=== PATIENT | male | born 1945 | race Caucasian/White ===

== ENCOUNTER 2018-06-27 04:09 | Inpatient (IN) ==
[2018-06-25 10:58] LABS: HEMATOCRIT 44.7 % (42.0-52.0); HEMOGLOBIN 15.3 g/dL (14.0-18.0); MCH 32.6 PG (27-31); MCHC 34.2 g/dL (33-37); MCV 95.3 FL (81-99); MPV 12.1 FL (7.4-10.4); RBC 4.69 XMIL (4.7-6.1); RDW 12.9 % (11.5-14.5); WBC 6.92 X1000 (4.8-10.8)
[2018-06-27] MEDS ORDERED: DIPRIVAN 1% ONE ×2 (07:56→10:28)
[2018-06-27] MEDS ORDERED: QUELICIN (DOSE) ONE ×2 (07:56→10:52)
[2018-06-27] MEDS ORDERED: XYLOCAINE-MPF 2% ONE ×2 (07:56→10:52)
[2018-06-27] MEDS ORDERED: ENTEREG ONE (08:19)
[2018-06-27] MEDS ORDERED: LR 1,000 ML ONE ×2 (08:19→10:58)
[2018-06-27] MEDS ORDERED: INVANZ 1 GM/NS 1 GM/50 ML IVPB ONE (08:20)
[2018-06-27] MEDS ORDERED: FENTANYL ONE ×2 (10:29→10:31)
[2018-06-27] MEDS ORDERED: NORCURON ONE (10:52)
[2018-06-27] MEDS ORDERED: SODIUM CHLORIDE 0.9% 10 ML ONE (10:52)
[2018-06-27] MEDS ORDERED: SENSORCAINE-MPF 0.5%/EPI 1:200,000 ONE (10:58)
[2018-06-27] MEDS ORDERED: NAROPIN 0.5% ONE (11:06)
[2018-06-27] MEDS ORDERED: EXPAREL 1.3% ONE (11:07)
[2018-06-27] MEDS: INVANZ 1 GM/NS 0 GM/0 ML IVPB ONE ×2 (11:12→20:34)
[2018-06-27] MEDS ORDERED: ATROPINE ONE (11:57)
[2018-06-27] MEDS ORDERED: DECADRON ONE (12:15)
[2018-06-27] MEDS ORDERED: ZOFRAN ONE (12:15)
[2018-06-27] MEDS ORDERED: ROBINUL ONE (12:32)
[2018-06-27 12:42] LABS: URINE SOURCE CATH
[2018-06-27 12:47] LABS: BILIRUBIN URINE NEGATIVE (NEGATIVE); BLOOD URINE TRACE (NEGATIVE); COLOR YELLOW; GLUCOSE URINE NEGATIVE (NEGATIVE); KETONE URINE NEGATIVE (NEGATIVE); LEUKOCYTES URINE NEGATIVE (NEGATIVE); NITRITE URINE NEGATIVE (NEGATIVE); PROTEIN URINE TRACE mg/dL (NEGATIVE); SP GRAVITY URINE 1.003; TURBIDITY URINE CLEAR (CLEAR); UROBILINOGEN URINE NORMAL (NORMAL)
[2018-06-27 12:49] LABS: UR EPITHELIAL CELLS <10 /HPF (<10); URINE BACTERIA NEGATIVE /HPF; URINE WBC <10 /HPF (<10)
[2018-06-27] MEDS ORDERED: NEOSTIGMINE ONE (13:37)
--- NOTE | 2018-06-27 14:47 | OPERATIVE NOTE ---
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 PROCEDURE PERFORMED: Laparoscopic right colectomy. TACK DRILLER: Dr. Dee was present for creation of anastomosis and closure of the abdomen. He facilitated exposure and identification of anatomy. ANESTHESIA: General and a TAP block. INDICATIONS: A 72-year-old gentleman who had a transverse colon mass that was noted at the time of colonoscopy. Biopsy showed invasive carcinoma. He was also incidentally found to have a bladder tumor that was treated and is consistent with a primary bladder malignancy. This was done prior to his colectomy. OPERATIVE FINDINGS: There was a tattooed lesion at the hepatic flexure. No evidence of metastatic disease. OPERATIVE NOTE: Risks, benefits, and alternatives were discussed with the patient, and he consented to the procedure. He was seen preoperatively. The surgical site was confirmed and marked. He was taken to the operating room and placed in supine position. General anesthesia was induced without complication. All bony prominences were padded. He was then placed in lithotomy position, ensuring no pressure points at this point, and a TAP block was performed by our Anesthesia colleagues. For details, please see their record. After this, his abdomen was prepped with chlorhexidine solution and draped in the usual fashion. After a time-out, we made a supraumbilical incision, carried this down the fascia, and incised the fascia and entered in an open controlled fashion. A 12 mm Patricia trocar was placed. We then placed a 5 mm trocar in the suprapubic location and a left lower quadrant 12 mm trocar. We identified the tattoo lesion, placed the patient in steep [id number] and Trendelenburg position, identified the cecum and terminal ileum, and elevated this, identifying the ileocolic pedicle. We divided this highly after dissecting it out circumferentially with the LigaSure device with a vascular load stapler. We were able to identify the duodenum and protect this, dissecting it down. We continued our medial to lateral dissection up to the lateral abdominal wall, protecting the retroperitoneal structures. We then completed our lateral dissection starting at our distal transection point around the hepatic flexure down to the cecum and appendix and mobilized the terminal ileum out of the pelvis. We completed our lymphadenectomy, dividing the mesentery up to our terminal ileum and then used another fire of the Endo ALBER stapler to divide the terminal ileum. Another 5 mm trocar was placed in the left upper quadrant to facilitate exposure. We confirmed hemostasis in the resection bed. The colon was mobilized in its entirety with the exception of the distal margin. We deflated the abdomen. We extended our Patricia trocar incision, placed a medium Edgar wound protector, brought the specimen out through this incision, divided and resected the specimen distally with a fire of the blue load ALBER stapler. At this point we made a colotomy on the taenia libera and an enterotomy on the antimesenteric portion of the bowel and created a stapled [id number] functional end-to-end anastomosis, closing the common enterotomy with 2 additional fires of the stapler. We imbricated the corners, oversewing those with 3-0 Vicryl suture and placed an offloading suture at the distal aspect of the anastomosis. There was good bleeding on both ends, but we confirmed hemostasis. Placed this back in the right upper quadrant of the abdomen, covered it with omentum. There was no tension and no significant mesenteric defect. Prior to desufflating the abdomen, we did note that there was hemostasis in the resection bed. At this point, we changed gloves, removed our wound protector, and obtained new instruments. We closed the fascia with a 0 PDS suture and the left lower quadrant with a 0 Vicryl suture and closed the skin with 4-0 Monocryl. Dermabond was applied. Counts were correct. He was awoken and transferred to Recovery. I spoke to family. cc: MD INDERJIT Lindsay
[2018-06-27] MEDS: DILAUDID ONE ×2 (14:52→15:00)
[2018-06-27] MEDS ORDERED: ZOFRAN IV PRN (15:37)
[2018-06-27] MEDS: ULTRAM PO PRN (17:15)
[2018-06-27] MEDS: OFIRMEV 1000 MG/ISOTONIC SOLN 1,000 MG/100 ML BOTTLE IV SCH ×2 (17:19→22:02)
[2018-06-27] MEDS: PERIDEX MT SCH (22:02)
[2018-06-27] MEDS: LR 1,000 ML IV SCH (22:26)
[2018-06-28] MEDS: OFIRMEV 1000 MG/ISOTONIC SOLN 1,000 MG/100 ML BOTTLE IV SCH ×2 (03:31→08:37)
[2018-06-28 05:50] LABS: HEMATOCRIT 41.3 % (42.0-52.0); HEMOGLOBIN 13.9 g/dL (14.0-18.0); MCH 32.9 PG (27-31); MCHC 33.7 g/dL (33-37); MCV 97.9 FL (81-99); MPV 12.4 FL (7.4-10.4); RBC 4.22 XMIL (4.7-6.1); RDW 12.9 % (11.5-14.5); WBC 10.76 X1000 (4.8-10.8)
[2018-06-28 06:23] LABS: AGAP 9; BUN 12 mg/dL (8-22); CALCIUM 8.3 mg/dL (8.8-10.2); CHLORIDE 104 mmol/L (98-107); COSMO 283; CREATININE 0.8 mg/dL (0.7-1.2); ESTIMATED GFR > 60; GLUCOSE 162 mg/dL (70-104); POTASSIUM 4.4 mmol/L (3.5-5.1); SODIUM 140 mmol/L (136-145); TCO2 27 mmol/L (25-35)
[2018-06-28] MEDS: ENTEREG PO SCH ×3 (08:32→22:05)
[2018-06-28] MEDS: PERIDEX MT SCH ×3 (08:32→22:05)
[2018-06-28] MEDS: MAG-OX PO SCH (08:32)
[2018-06-28] MEDS: ULTRAM PO PRN ×3 (08:32→22:03)
[2018-06-28] MEDS: LOVENOX SUBQ SCH (08:33)
[2018-06-28] MEDS ORDERED: SALINE LOCK IV FLUID XX ONE (08:40)
[2018-06-28] MEDS: LR 1,000 ML IV SCH (08:45)
--- NOTE | 2018-06-28 13:46 | GENERAL SURGERY PROGRESS NOTE ---
DATE: 06/28/2018 SUBJECTIVE: Doing well, no fevers, no tachycardia overnight. Minimal soreness. Abdomen soft. Having some rumbling but no flatus yet. San is in place with clear urine. White count 3, hematocrit 41, creatinine 0.8. ASSESSMENT/PLAN: 72-year-old gentleman status post right colectomy. He is doing well. Will continue out of bed, will continue his San given his recent bladder operations little large prostate. Otherwise, continue per the ERAS protocol with out of bed. Will give a soft diet today. He is on prophylactic Lovenox. cc: Peterson Pichardo MD
[2018-06-29] MEDS: ULTRAM PO PRN (06:33)
[2018-06-29] MEDS: MAG-OX PO SCH (11:15)
[2018-06-29] MEDS: PERIDEX MT SCH ×2 (11:15→22:49)
[2018-06-29] MEDS: ENTEREG PO SCH ×2 (11:15→22:49)
[2018-06-29] MEDS: LOVENOX SUBQ SCH (11:15)
--- NOTE | 2018-06-29 21:53 | GENERAL SURGERY PROGRESS NOTE ---
DATE: 06/29/2018 SUBJECTIVE: Doing okay. San is out and he has voided. A little more distention, a little more nausea, belching, but he is passing gas. Incisions are intact. His abdomen is soft nondistended. No new labs this morning. ASSESSMENT AND PLAN: A 72-year-old gentleman status post laparoscopic right colectomy. He is on prophylactic Lovenox, Entereg, Mag oxide, Ultram, and a gastrointestinal soft diet. Would continue ambulation. Ensure he continues to have appropriate voids and when he has reliable return of bowel function, allow him to go home, possibly tomorrow. cc: Peterson Pichardo MD
[2018-06-30] MEDS: LOVENOX SUBQ SCH (09:36)
[2018-06-30] MEDS: PERIDEX MT SCH (09:36)
[2018-06-30] MEDS: ENTEREG PO SCH (09:36)
[2018-06-30] MEDS: MAG-OX PO SCH (09:36)
[2018-06-30 12:07] VITALS: BP 144/74
[2018-06-30] MEDS ORDERED: PNEUMOVAX 23 IM ONE (13:30)
--- NOTE | 2018-07-04 20:48 | DISCHARGE SUMMARY ---
ADMISSION DATE: 06/27/2018 DISCHARGE DATE: 06/30/2018 ADMITTING DIAGNOSES: Transverse colon cancer. POSTOPERATIVE DIAGNOSES: Hepatic flexure colon cancer. PROCEDURE PERFORMED: Laparoscopic right colectomy performed on 06/27/2018. 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 It was intraoperatively found to be at the hepatic flexure. Patient was seen preoperatively and cleared by Anesthesia for above procedure. For details, please see dictated operative note. Postoperatively, he was admitted to my service and was advanced per the [*]ERAS pathway. He was continued on prophylactic Lovenox as well as PPI. His has San was kept until postop day #2 as he had a recent resection of a bladder tumor for superficially invasive bladder carcinoma, but we removed this. He was able void without difficulty. His incisions are intact. He had return of bowel function. He was on day #2, but he remained somewhat distended and was felt safe for discharge home on day #3. Discharge instructions were given in written and verbal format. Discharge medications he can continue his home medications. DISPOSITION: Home to self-care. Discharge condition good. Follow up appointment with me in one week. cc: Peterson Pichardo MD
== END 2018-06-30 13:30 | disposition home or self-care (01) | DRG 331 ==
LOC: SURHOLD 04:09 → 4N 15:37 → UNDODISIN 06-30 13:08
PROVIDERS: ADMIT Surgery; ATTEND Surgery
CPT/HCPCS: 80048; 81001; 85027; 86850; 86900; 86901; 86920; 88309; 88313; 90732; 94761; 94799; 97161; A9270; C9290; J0131; J0330; J0461; J1100; J1170; J1335; J1650; J2405; J2795; J3010; J7120